=== PATIENT | female | born 1995 | race Caucasian/White ===

== ENCOUNTER 2016-11-02 15:28 | Emergency (ER) | payer OTHER ==
[~2016-11-02] VITALS: Ht 162.6 cm; Wt 121.0 kg
[2016-11-02 15:42] VITALS: Ht 162.6 cm; Wt 121.0 kg
[2016-11-02 17:21] LABS: D-DIMER 276.1 ng/ml (<460)
[2016-11-02] MEDS ORDERED: IBUP-1542 PO (17:40)
--- NOTE | 2016-11-02 19:42 | RADRPT ---
PROCEDURE: XR Chest. CLINICAL INDICATION: Chest pain. TECHNIQUE: Portable AP upright view of the chest was obtained. COMPARISON: None. FINDINGS: The cardiomediastinal silhouette is within normal limits. The lungs are clear. There is no evidenc e for pleural effusion, pneumothorax or pulmonary vascular congestion. The osseous structures are i ntact with no evidence for acute abnormality. RPTAT:HJJR IMPRESSION: No evidence for acute intrathoracic pathology. Physician Kristi Date Time Electronically viewed and signed by Physician Kristi on 11/02/2016 19:42 JR/
--- NOTE | 2016-11-02 19:59 | ERD ---
ER Documentation Chief Complaint Date/Time DATE: 11/02/16 TIME: 19:52 Chief Complaint CWP RADATING TO LEFT ARM WITH NUMBNESS HPI Patient is a 21-year-old female who presents to the emergency department with chest pain radiating down her left arm. She states the pain started 3 days ago. Patient describes the pain to be episodic in nature, lasting 1-2 hours and then resolving. Patient states pain is localized to her mid sternum and radiates down her left arm. Patient reports occasional left arm numbness and tingling. Patient states that the pain is "pounding". Patient does report some occasional shortness of breath when pain occurs. Patient denies any shortness of breath at rest. Patient denies any history of trauma or heavy lifting. Patient denies any fevers, chills, nausea, vomiting, diaphoresis or loss consciousness. Patient does report that her father had a heart attack at the age of 38. Patient denies any recent travel, recent surgeries or leg swelling. Patient currently has a Nexplanon. 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 ROS All systems reviewed and are negative except as per history of present illness. Medications Home Meds Active Scripts Ibuprofen* (Motrin*) 600 Mg Tab, 600 MG PO Q6, #30 TAB Prov:RUDOLPH PRICE PA-C 11/02/16 Allergies Allergies: Coded Allergies: No Known Allergy (Unverified , 11/02/16) PMhx/Soc Medical and Surgical Hx: pt denies Medical Hx History of Surgery: No Anesthesia Reaction: No Hx Neurological Disorder: No Hx Respiratory Disorders: No Hx Cardiac Disorders: No Hx Psychiatric Problems: No Hx Miscellaneous Medical Probl: No Hx Alcohol Use: No Hx Substance Use: No Hx Tobacco Use: No Smoking Status: Never smoker Physical Exam Vitals Vital Signs Date Time Temp Pulse Resp B/P Pulse Ox O2 Delivery O2 Flow Rate FiO2 11/02/16 20:00 98.1 95 16 127/76 99 Room Air 11/02/16 15:42 98.1 105 17 151/82 100 Physical Exam GENERAL: Well-developed, well-nourished female. Appears in no acute distress. HEAD: Normocephalic, atraumatic. EYES: Pupils are equally reactive bilaterally. EOMs grossly intact. No conjunctival erythema. ENT: Moist mucous membranes. No uvula deviation. No kissing tonsils. NECK: Supple. No meningismus. Normal range of motion of the neck. LUNG: Clear to auscultation bilaterally. No rhonchi, wheezing, rales or coarse breath sounds. HEART: Regular rate and rhythm. No murmurs, rubs or gallops. ABDOMEN: Obese abdomen, soft, nontender, and nondistended. Positive bowel sounds in all four quadrants. No rebound tenderness, no guarding. (-) McBurney' s point tenderness. No CVA tenderness. BACK: No midline tenderness. EXTREMITIES: Equal pulses bilaterally. No peripheral clubbing, cyanosis or edema. No unilateral leg swelling. NEUROLOGIC: Alert and oriented. Moving all four extremities without any difficulty. Normal speech. Steady gait. Bilateral normal mental health practitioner strength. Sensation intact light touch bilaterally. SKIN: Normal color. Warm and dry. No rashes or lesions. Results 24 hrs Laboratory Tests Test 11/02/16 16:50 D-Dimer 276.10ng/ml D-Dimer Comment Troponin I < 0.012ng/ml Procedures/MDM ED COURSE: The patient was stable throughout ED course. I kept the patient and/or family informed of laboratory and diagnostic imaging results throughout the ED course. EKG: Read by Dr. Soto, attending physician. EKG shows sinus tachycardia at a rate of 105 bpm. No arrhythmias, acute ST elevations or T wave changes were noted. DIAGNOSTIC IMAGING: Read by radiologist. DIAGNOSTIC IMAGING REPORT Patient: DON SKAGGS : 09/04/2016 Age: 1Y 01M Sex: M MR #: [id number] DOS: 11/02/16 1708 Ordering MD: RUDOLPH PRICE PA-C Location: [facility] Room/Bed: PROCEDURE: XR Chest. CLINICAL INDICATION: Fever, cough TECHNIQUE: Anterior chest x-ray. COMPARISON: None. FINDINGS: There is peribronchial soft tissue thickening in bilateral perihilar distribution. The lungs are otherwise clear. No focal opacification is seen. The cardiomediastinal silhouette is unremarkable. The osseous structures are unremarkable. IMPRESSION: 1. Peribronchial soft tissue thickening in bilateral perihilar distribution. This finding is nonspecific but can be seen in reactive airway disease, bronchiolitis, bronchitis, pulmonary edema and viral pneumonia. 2. No focal consolidation identified to suggest lobar pneumonia. RPTAT: QQ .Raul Pena MD, Date Time Electronically viewed and signed by .Raul Pena MD, MD on 11/02/2016 18: 17 .M/ CC: RUDOLPH PRICE PA-C MEDICAL DECISION MAKING: This is a 21-year-old female presents with chest pain and shortness of breath 3 days. Patient denied any leg swelling, recent surgeries, travel. Patient is currently on the Nexplanon. Vital signs were reviewed. Patient was afebrile. Patient was not hypoxic. She was tachycardic upon initial presentation with a pulse of 105. Cardiac exam was normal. Lung exam was normal. EKG showed sinus tachycardia. Chest x-ray was unremarkable. Given that patient did report a family history of heart attack, troponin was obtained. Appointment was negative. Given that patient was tachycardic as well as currently on exogenous estrogen, patient's d-dimer was obtained. D-dimer was not elevated. Low suspicion for ACS, arrhythmia, PE, DVT, pericarditis, pneumothorax, pneumonia or pleural effusion. Given these findings, the patient's presentation is most consistent with this pain of unknown etiology. Patient was advised to follow- up with a art appraiser for further monitoring of her symptoms and workup. Patient advised to have a stress test versus 24 hour Holter monitoring to continue to monitor symptoms. PRESCRIPTIONS: Ibuprofen DISCHARGE: At this time, patient is stable for discharge and outpatient management. Patient provided with a copy of all blood work and imaging studies obtained today. I have instructed the patient to follow-up with his/her primary care physician in 1-2 days. If symptoms persist, patient may need to see a specialist for further examinations and testing. I have instructed the patient to promptly return to the ER at any time for any new or worsening symptoms including increased increased pain, fever, nausea, vomiting, numbness, weakness , diaphoresis or LOC. The patient and/or family expressed understanding of and agreement with this plan. All questions were answered. Home care instructions were provided. Departure Diagnosis: Primary Impression: Chest pain Chest pain type: unspecified Qualified Code: R07.9 - Chest pain, unspecified type Condition: Stable Patient Instructions: Chest Pain, Uncertain Cause Referrals: SOBEIDA SARABIA MD,SILVANA KOTHARI,MARCELO MURRAY,GENARO Jay MD [facility] YOU HAVE RECEIVED A MEDICAL SCREENING EXAM AND THE RESULTS INDICATE THAT YOU DO NOT HAVE A CONDITION THAT REQUIRES URGENT TREATMENT IN THE EMERGENCY DEPARTMENT. FURTHER EVALUATION AND TREATMENT OF YOUR CONDITION CAN WAIT UNTIL YOU ARE SEEN IN YOUR DOCTORS OFFICE WITHIN THE NEXT 1-2 DAYS. IT IS YOUR RESPONSIBILITY TO MAKE AN APPOINTMENT FOR FOLOW-UP CARE. IF YOU HAVE A PRIMARY DOCTOR --you should call your primary doctor and schedule an appointment IF YOU DO NOT HAVE A PRIMARY DOCTOR YOU CAN CALL OUR PHYSICIAN REFERRAL HOTLINE AT IF YOU CAN NOT AFFORD TO SEE A PHYSICIAN YOU CAN CHOSE FROM THE FOLLOWING [facility] [address] [facility] [address] [address] [facility] [address] [facility] [address] [facility] [address] [facility]. [facility]. [address] [facility]. [facility] YOU HAVE RECEIVED A MEDICAL SCREENING EXAM AND THE RESULTS INDICATE THAT YOU DO NOT HAVE A CONDITION THAT REQUIRES URGENT TREATMENT IN THE EMERGENCY DEPARTMENT. FURTHER EVALUATION AND TREATMENT OF YOUR CONDITION CAN WAIT UNTIL YOU ARE SEEN IN YOUR DOCTORS OFFICE WITHIN THE NEXT 1-2 DAYS. IT IS YOUR RESPONSIBILITY TO MAKE AN APPOINTMENT FOR FOLOW-UP CARE. IF YOU HAVE A PRIMARY DOCTOR --you should call your primary doctor and schedule and appointment IF YOU DO NOT HAVE A PRIMARY DOCTOR YOU CAN CALL OUR PHYSICIAN REFERRAL HOTLINE AT . IF YOU CAN NOT AFFORD TO SEE A PHYSICIAN YOU CAN CHOSE FROM THE FOLLOWING [facility] INSTITUTIONS: [facility] [address] [place], [place] [id number] [place] [address] [address] [place] [address] [facility] [address] [place] [address] Additional Instructions: Call your primary care doctor TOMORROW for an appointment during the next 1-2 days.See the doctor sooner or return here if your condition worsens before your appointment time. Patient advised to follow-up with her primary care physician in the next 1 to days. Patient advised to obtain referral for art appraiser. Patient advised to conduct stress test versus 24 hour Holter monitoring for further management of her chest pain. She advised to return to the ED for any worsening symptoms. RUDOLPH PRICE PA-C Nov 02, 2016 19:59
[2016-11-02 20:00] VITALS: BP 127/76; PULSE 95; RESP 16; TEMP 98.1
== END 2016-11-02 20:01 | disposition home or self-care (01) ==
LOC: FTE 15:28
DX: R07.89 Other chest pain (principal)
CPT/HCPCS: 71010; 84484; 85378; 93005; Z7502

== ENCOUNTER 2017-04-12 20:19 | Emergency (ER) | payer OTHER ==
[~2017-04-12] VITALS: Ht 157.5 cm; Wt 124.9 kg
[~2017-04-12 20:19] MED LIST: IBUP-1542 PO
[2017-04-12 20:24] VITALS: Ht 157.5 cm; Wt 124.9 kg
[2017-04-12] MEDS ORDERED: IBUPROFEN 800 MG TAB PO ONE (21:00)
[2017-04-12] MEDS ORDERED: HYDROCODONE/APAP (5/325) TAB PO ONE (21:00)
[2017-04-12] MEDS ORDERED: IBUP800T25 PO (23:08)
[2017-04-12] MEDS ORDERED: TRAM50TA2 PO (23:08)
--- NOTE | 2017-04-12 23:11 | ERD ---
ER Documentation Chief Complaint Chief Complaint PT IN C/O "CHEST PAIN WHEN TAKING DEEP BREATHS SINCE NOON" HPI 21-year-old female presents with anterior chest pain since today. She denies any history of trauma. She denies any recent cough or congestion or URI symptoms. The pain is worse with deep breathing and with movement. She denies any calf swelling or additional symptoms. ROS All systems reviewed and are negative except as per history of present illness. Medications Home Meds Active Scripts Tramadol HCl (Tramadol HCl) 50 Mg Tablet, 50 MG PO Q4 Y for PAIN, #20 TAB Prov:TEN PITTMAN MD 04/12/17 Ibuprofen* (Motrin*) 800 Mg Tab, 800 MG PO Q6, #20 TAB Prov:TEN PITTMAN MD 04/12/17 Ibuprofen* (Motrin*) 600 Mg Tab, 600 MG PO Q6, #30 TAB Prov:RUDOLPH PRICE PA-C 11/02/16 Allergies Allergies: Coded Allergies: No Known Allergy (Unverified , 04/12/17) PMhx/Soc Medical and Surgical Hx: pt denies Medical Hx, pt denies Surgical Hx History of Surgery: No Anesthesia Reaction: No Hx Neurological Disorder: No Hx Respiratory Disorders: No Hx Cardiac Disorders: No Hx Psychiatric Problems: No Hx Miscellaneous Medical Probl: No Hx Alcohol Use: No Hx Substance Use: No Hx Tobacco Use: No Smoking Status: Never smoker Physical Exam Vitals Vital Signs Date Time Temp Pulse Resp B/P Pulse Ox O2 Delivery O2 Flow Rate FiO2 04/12/17 20:24 98.1 83 20 136/79 99 Physical Exam Const: [], [id number], morbidly obese. Head: Atraumatic Eyes: Normal Conjunctiva ENT: Normal External Ears, Nose and Mouth. Neck: Full range of motion..~ No meningismus. Resp: Clear to auscultation bilaterally reproducible tenderness on the inferior costochondral area. No crepitance or skin changes or deformities. Cardio: Regular rate and rhythm, no murmurs Abd: Soft, non tender, non distended. Normal bowel sounds Skin: No petechiae or rashes Back: No midline or flank tenderness Ext: No cyanosis, or edema Neur: Awake and alert Psych: Normal Mood and Affect Results 24 hrs Current Medications Medications (Trade) Dose Ordered Sig/Mane Route PRN Reason Start Time Stop Time Status Last Admin Dose Admin Ibuprofen (Motrin) 800 mg ONCE ONCE PO 04/12/17 21:00 04/12/17 21:01 DC 04/12/17 20:53 Acetaminophen/ Hydrocodone Bitart ([place] (5/325)) 1 tab ONCE ONCE PO 04/12/17 21:00 04/12/17 21:01 DC 04/12/17 20:53 Procedures/MDM Chest X-ray 1V Interpreted by me: Soft Tissue: No acute abnormalities Bones: No acute abnormalities Mediastinum/Cardiac Silhouette/Lungs: [No acute abnormalities] impression have normal 1 view chest x-ray EKG: Rate/Rhythm: [Normal Sinus Rhythm] rate equals 91 QRS, ST, T-waves: [No changes consistent w/ acute ischemia] Impression: [No evidence of ischemia or arrhythmia] This is a one-day history reproducible anterior chest wall pain. She likely has costochondritis. She will be treated with ibuprofen and tramadol and further observation at home, return precautions and primary care follow-up. The patient was stable with no new complaints during the ER course. Clinically, there is no current evidence to suggest meningitis, sepsis, acute abdomen, pneumonia, acute coronary syndrome, pulmonary embolism, or any other emergent condition appearing to require further evaluation or hospitalization. The patient should certainly return for any new or worsening symptoms per the aftercare instructions. They should otherwise follow-up with her primary care doctor for reevaluation this week. Departure Diagnosis: Primary Impression: Chest wall pain Condition: Stable Patient Instructions: Chest Wall Pain, Costochondritis Additional Instructions: Examinations normal today. Likely costochondritis. Recheck for new or worsening symptoms with primary care doctor. TEN PITTMAN MD Apr 12, 2017 23:11
--- NOTE | 2017-04-12 23:36 | RADRPT ---
PROCEDURE: XR Chest. CLINICAL INDICATION: Chest pain. TECHNIQUE: Single frontal view of the chest was obtained COMPARISON: None FINDINGS: The heart and mediastinum are within normal limits. The lungs are clear. There is no pleural effusion or pneumothorax. The osseous structures are unremarkable. IMPRESSION: 1. No acute cardiopulmonary disease. RPTAT:AAJJ Physician Fam Date Time Electronically viewed and signed by Mitzy Fernandez Physician on 04/12/2017 23:35 QL/
== END 2017-04-12 23:32 | disposition home or self-care (01) ==
LOC: FTE 20:19
DX: R07.89 Other chest pain (principal)
CPT/HCPCS: 71010; 93005; Z7502; Z7610

== ENCOUNTER 2017-07-14 19:46 | Emergency (ER) | END 2017-07-14 22:15 | disposition left against medical advice (07) ==

== ENCOUNTER 2017-11-22 16:07 | Emergency (ER) | END 2017-11-22 19:17 | disposition home or self-care (01) ==

== ENCOUNTER 2018-03-04 22:07 | Emergency (ER) | END 2018-03-05 00:11 | disposition home or self-care (01) ==

== ENCOUNTER 2018-06-13 20:54 | Emergency (ER) | payer OTHER ==
[~2018-06-13] VITALS: Ht 160 cm; Wt 132.7 kg
[~2018-06-13 20:54] MED LIST changes: +CEPH-443 PO; +IBUP800T48 PO; +ONDA4TAB8 PO; +TRAM50TA2 PO
[2018-06-13 21:13] VITALS: Ht 160 cm; Wt 132.7 kg
[2018-06-13] MEDS ORDERED: IBUP800T48 PO (23:13)
--- NOTE | 2018-06-13 23:20 | ERD ---
ER Documentation Chief Complaint Chief Complaint C/O LT UPPER AP RADIATING TO BACK X1 WEEK HPI 23-year-old female presents with 3 weeks of symptoms. She feels a small nodule underneath the subcutaneous tissue of her left upper quadrant of the abdomen. It is slightly tender. She denies any fevers or chills, no other nodules felt on her body. She is going to her primary care physician and is taking Motrin occasionally with moderate relief. It only hurts when she is sleeping and laying on her side. ROS All systems reviewed and are negative except as per history of present illness. Medications Home Meds Active Scripts Ibuprofen* (Motrin*) 800 Mg Tab, 800 MG PO Q6H PRN for PAIN AND OR ELEVATED TEMP, #30 TAB Prov:SABINA RON MD 06/13/18 Cephalexin* (Keflex*) 500 Mg Capsule, 500 MG PO TID for 7 Days, CAP Prov:FLAVIO COTTRELL PA-C 03/05/18 Ondansetron Hcl* (Zofran*) 4 Mg Tablet, 4 MG PO Q6H for NAUSEA AND/OR VOMITING, #30 TAB Prov:JEROME CARRERO 11/22/17 Ibuprofen* (Motrin*) 600 Mg Tab, 600 MG PO Q6, #30 TAB Prov:JEROME CARRERO 11/22/17 Tramadol HCl (Tramadol HCl) 50 Mg Tablet, 50 MG PO Q4 PRN for PAIN, #20 TAB Prov:TEN PITTMAN MD 04/12/17 Ibuprofen* (Motrin*) 800 Mg Tab, 800 MG PO Q6, #20 TAB Prov:TEN PITTMAN MD 04/12/17 Ibuprofen* (Motrin*) 600 Mg Tab, 600 MG PO Q6, #30 TAB Prov:RUDOLPH PRICE PA-C 11/02/16 Allergies Allergies: Coded Allergies: No Known Allergy (Unverified , 04/12/17) PMhx/Soc History of Surgery: Yes Anesthesia Reaction: No Hx Neurological Disorder: Yes (migraine) Hx Respiratory Disorders: No Hx Cardiac Disorders: No Hx Psychiatric Problems: No Hx Miscellaneous Medical Probl: Yes (anemia, depression) Hx Alcohol Use: No Hx Substance Use: No Hx Tobacco Use: No Smoking Status: Never smoker FmHx Family History: No diabetes Physical Exam Vitals Vital Signs Date Temp Pulse Resp B/P (MAP) Pulse Ox O2 O2 Flow FiO2 Time Delivery Rate 06/13/18 97.1 73 19 139/86 100 21:13 (103) Physical Exam General: Well developed, well nourished, no acute distress Head: Normocephalic, atraumatic. Eyes: EOM intact ENT: Moist mucous membranes Neck: Full ROM Respiratory: No respiratory distress Cardiovascular: Well perfused distally Abdominal: Nondistended, soft and nontender without rebound or guarding, skin as documented below. : Deferred MSK: No edema, no unilateral swelling, 5/5 strength Neurologic: Alert and oriented, moving all extremities, normal speech, steady gait Skin: There is a small nodule palpated in the left upper quadrant of the abdomen in the subcutaneous tissue that is slightly tender. No other lymphadenopathy is palpated. No skin changes. Psych: Normal mood Result Diagram: 06/13/18 1694 Results 24 hrs Laboratory Tests Test 06/13/18 22:56 White Blood Count 9.1 10^3/ul Red Blood Count 4.90 10^6/ul Hemoglobin 11.6 g/dl Hematocrit 37.4 % Mean Corpuscular Volume 76.3 fl Mean Corpuscular Hemoglobin 23.7 pg Mean Corpuscular Hemoglobin Concent 31.0 g/dl Red Cell Distribution Width 15.9 % Platelet Count 238 10^3/UL Mean Platelet Volume 11.0 fl Immature Granulocytes % 0.400 % Neutrophils % 61.9 % Lymphocytes % 31.3 % Monocytes % 5.6 % Eosinophils % 0.5 % Basophils % 0.3 % Nucleated Red Blood Cells % 0.0 /100WBC Immature Granulocytes # 0.040 10^3/ul Neutrophils # 5.6 10^3/ul Lymphocytes # 2.9 10^3/ul Monocytes # 0.5 10^3/ul Eosinophils # 0.1 10^3/ul Basophils # 0.0 10^3/ul Nucleated Red Blood Cells # 0.0 10^3/ul Procedures/MDM The patient's clinical exam is consistent with a nonspecific subcutaneous nodule of subacute etiology. Consider possible lipoma or other inflammatory change of the subcutaneous fat. I do believe outpatient follow-up with a dermatology referral would be reasonable. Nonsteroidal anti-inflammatories, warm compresses and cool compresses alternating would also be appropriate. No signs or symptoms concerning for lymphoma. A CBC will be reasonable to screen but no other lymphadenopathy or nodes or nodules are noted on clinical exam. The patient's abdomen is soft and nontender. CBC is unremarkable. The patient does not have an identifiable emergent medical condition that warrants inpatient hospitalization at this time. The patient is deemed safe for discharge with outpatient follow-up. We discussed follow up with the patient's primary care doctor within 24 to 48 hours as needed. We also discussed return to the emergency room for worsening symptoms or worsening condition. Outpatient referral: Derm Discharge Medications: Motrin Departure Diagnosis: Primary Impression: Subcutaneous nodule Condition: Good Patient Instructions: Medical Screening Exam, Nonurgent Referrals: CHIQUI LY MD [place] MD [facility] YOU HAVE RECEIVED A MEDICAL SCREENING EXAM AND THE RESULTS INDICATE THAT YOU DO NOT HAVE A CONDITION THAT REQUIRES URGENT TREATMENT IN THE EMERGENCY DEPARTMENT. FURTHER EVALUATION AND TREATMENT OF YOUR CONDITION CAN WAIT UNTIL YOU ARE SEEN IN YOUR DOCTORS OFFICE WITHIN THE NEXT 1-2 DAYS. IT IS YOUR RESPONSIBILITY TO MAKE AN APPOINTMENT FOR FOLOW-UP CARE. IF YOU HAVE A PRIMARY DOCTOR --you should call your primary doctor and schedule an appointment IF YOU DO NOT HAVE A PRIMARY DOCTOR YOU CAN CALL OUR PHYSICIAN REFERRAL HOTLINE AT IF YOU CAN NOT AFFORD TO SEE A PHYSICIAN YOU CAN CHOSE FROM THE FOLLOWING [facility] [address] [facility]. [facility] [address] [facility]. [facility] [address] [facility] [address] [facility] [address] [facility]. [facility]. [address] [facility]. [facility] YOU HAVE RECEIVED A MEDICAL SCREENING EXAM AND THE RESULTS INDICATE THAT YOU DO NOT HAVE A CONDITION THAT REQUIRES URGENT TREATMENT IN THE EMERGENCY DEPARTMENT. FURTHER EVALUATION AND TREATMENT OF YOUR CONDITION CAN WAIT UNTIL YOU ARE SEEN IN YOUR DOCTORS OFFICE WITHIN THE NEXT 1-2 DAYS. IT IS YOUR RESPONSIBILITY TO MAKE AN APPOINTMENT FOR FOLOW-UP CARE. IF YOU HAVE A PRIMARY DOCTOR --you should call your primary doctor and schedule and appointment IF YOU DO NOT HAVE A PRIMARY DOCTOR YOU CAN CALL OUR PHYSICIAN REFERRAL HOTLINE AT . IF YOU CAN NOT AFFORD TO SEE A PHYSICIAN YOU CAN CHOSE FROM THE FOLLOWING [facility] INSTITUTIONS: [facility] [address] [place] [address] [facility] [address] [place] [address] [facility] + [facility] [address] [place] [address] Additional Instructions: You will need to follow-up with a director clinical operations and regulatory submissions specialist for further evaluation of your subcutaneous nodule. SABINA RON MD Jun 13, 2018 23:20
[2018-06-13 23:32] VITALS: BP 130/82; PULSE 72; RESP 19
== END 2018-06-13 23:37 | disposition home or self-care (01) ==
LOC: FTE 20:54
DX: R22.9 Localized swelling, mass and lump, unspecified (principal)
CPT/HCPCS: 36415; 85025; Z7502; 99283